=== PATIENT | male | born 1995 | race Caucasian/White ===

== ENCOUNTER 2016-07-22 18:01 | Emergency (ER) | payer OTHER ==
[~2016-07-22] VITALS: Ht 180.3 cm; Wt 66.7 kg
[~2016-07-22 18:01] MED LIST: MOTRIN400 MG PO; TRAMADOL HCL50 MG PO
[2016-07-22] MEDS ORDERED: KEFLEX500 MG PO (20:56)
[2016-07-22 21:11] VITALS: BP 126/86
== END 2016-07-22 21:13 | disposition home or self-care (01) ==
LOC: EME 18:01
DX: S61.012A Laceration without foreign body of left thumb without damage to nail, initial encounter (principal); L08.9 Local infection of the skin and subcutaneous tissue, unspecified; W22.8XXA Striking against or struck by other objects, initial encounter; W45.8XXA Other foreign body or object entering through skin, initial encounter
CPT/HCPCS: 99281; 99284

== ENCOUNTER 2016-12-31 03:30 | Emergency (ER) | payer OTHER ==
[~2016-12-31] VITALS: Ht 180.3 cm; Wt 66.4 kg
[~2016-12-31 03:30] MED LIST changes: +KEFLEX500 MG PO
[2016-12-31 04:53] LABS: ADD MIUA? YES; BILIRUBIN NEGATIVE; BLOOD NEGATIVE; COLOR YELLOW ((YELLOW)); GLUCOSE (STRIP) NEGATIVE; KETONES NEGATIVE; LEUKOCYTES TRACE; NITRITE NEGATIVE; PROTEIN (STRIP) NEGATIVE
[2016-12-31 05:23] LABS: AMORPHOUS URATES CRYSTALS 1+; BACTERIA 2+ /HPF; CASTS NONE SEEN /LPF; CRYSTALS PRESENT; EPITHELIAL CELLS 1+ /HPF; MUCUS 2+ /LPF; RED BLOOD CELLS NONE SEEN /HPF (0-5); UCUL ADDED? YES
[2016-12-31 05:27] VITALS: BP 132/80
== END 2016-12-31 05:28 | disposition home or self-care (01) ==
LOC: EME 03:30
PROVIDERS: Physician Assistant
DX: S30.21XA Contusion of penis, initial encounter (principal); S30.812A Abrasion of penis, initial encounter; V18.0XXA Pedal cycle driver injured in noncollision transport accident in nontraffic accident, initial encounter; Y93.55 Activity, bike riding; F32.9 Major depressive disorder, single episode, unspecified; F17.200 Nicotine dependence, unspecified, uncomplicated; Z88.8 Allergy status to other drugs, medicaments and biological substances
CPT/HCPCS: 81003; 87086; 99281; 99284